=== PATIENT | female | born 1965 ===

== ENCOUNTER → 2019-03-12 16:32 | Outpatient (CLI) | payer OTHER | END | disposition home or self-care (01) | LOC: LAB 16:32 | DX: J11.1 Influenza due to unidentified influenza virus with other respiratory manifestations (principal); J70.9 Respiratory conditions due to unspecified external agent ==

== ENCOUNTER 2021-07-10 10:04 | Outpatient (CLI) | payer OTHER | END 2021-07-10 10:07 | disposition home or self-care (01) | LOC: SONOGRAMA 10:04 | PROVIDERS: ATTEND Pathology Anatomic Pathology & Clinical Pathology | DX: R16.0 Hepatomegaly, not elsewhere classified (principal); R22.1 Localized swelling, mass and lump, neck ==